=== PATIENT | male | born 1960 | race Caucasian/White ===

== ENCOUNTER → 2020-04-04 | Outpatient (CLI) | payer MEDICARE, MEDICAID ==
[~2020-04-04] MED LIST: CETI10TA32 PO; FLUT1BLS INH; HYDR-3240 PO; LISI-167 PO; PRAV10TA2 PO; PRAV20TA2 PO; RAMI5CAP57 PO; RISP-2 PO; RISP0.5T24 PO; TRIH5TAB2 PO
== END | disposition home or self-care (01) ==
LOC: CVU 10:22
PROVIDERS: ATTEND Internal Medicine Cardiovascular Disease
DX: I08.3 Combined rheumatic disorders of mitral, aortic and tricuspid valves (principal); R06.02 Shortness of breath; R07.9 Chest pain, unspecified
CPT/HCPCS: 93306